=== PATIENT | female | born 1960 ===

== ENCOUNTER 2017-06-01 20:18 | Emergency (ER) | payer OTHER ==
[2017-06-01 20:19] VITALS: BMI 28.8
--- NOTE | 2017-06-01 21:09 | ED PDOC ---
Arrival/HPI - General Chief Complaint: Flu-like Symptoms Time Seen by Provider: 06/01/17 21:04 Historian: Patient - History of Present Illness Narrative History of Present Illness (Text): 06/01/17 21:08 Lizzeth Johnson is a 56 year old female, whose past medical history includes hypertension, who presents to the Emergency department complaining of some abdominal discomfort earlier today.. Patient reports a headache currently and some nausea earlier, which resolved on its own. Patient noted to be febrile on arrival to ER. Patient states she only ate a banana prior. Patient denies any chills, chest pain, shortness of breath, vomiting, diarrhea, urinary symptoms, back pain, neck pain, vision changes, dizziness, trauma/injury, or any other complaints. Time/Duration: Other (today) Symptom Onset: Gradual Symptom Course: Unchanged Activities at Onset: Light Context: Work Past Medical History - Provider Review Nursing Documentation Reviewed: Yes - Infectious Disease Hx of Infectious Diseases: None - Tetanus Immunization Tetanus Immunization: Unknown - Past Medical History Past Medical History: No Previous - Cardiac Hx Cardiac Disorders: Yes Hx Hypertension: Yes - Musculoskeletal/Rheumatological Hx Falls: No - Psychiatric Hx Psychophysiologic Disorder: No Hx Anxiety: No Hx Bipolar Disorder: No Hx Depression: No Hx Emotional Abuse: No Hx Hallucinations: No Hx Panic Disorder: No Hx Post Traumatic Stress Disorder: No Hx Psychosis: No Hx Physical Abuse: No Hx Schizophrenia: No Hx Sexual Abuse: No Hx Substance Use: No - Surgical History Hx Hysterectomy: Yes Other/Comment: right shoulder surgery - Anesthesia Hx Anesthesia: Yes Hx Anesthesia Reactions: No Hx Malignant Hyperthermia: No - Suicidal Assessment Feels Threatened In Home Enviroment: No Family/Social History - Physician Review Nursing Documentation Reviewed: Yes Family/Social History: Unknown Family HX Smoking Status: Never Smoked Hx Alcohol Use: No Hx Substance Use: No Hx Substance Use Treatment: No Allergies/Home Meds Allergies/Adverse Reactions: Allergies No Known Allergies Allergy (Verified 11/18/12 12:08) Home Medications: Home Meds Medication Instructions Recorded Confirmed Calcium Carbonate [Calcium] 600 mg PO DAILY 06/01/17 06/01/17 Cholecalciferol [Vitamin D] 1,000 iu PO DAILY 06/01/17 06/01/17 Metoprolol Tartrate [Lopressor] 12.5 mg PO BID 06/01/17 06/01/17 Simvastatin 20 mg PO DAILY 06/01/17 06/01/17 Review of Systems - Physician Review All systems were reviewed & negative as marked: Yes - Review of Systems Constitutional: Fevers Eyes: Normal ENT: Normal Respiratory: Normal. absent: SOB, Cough Cardiovascular: Normal. absent: Chest Pain Gastrointestinal: Abdominal Pain, Nausea. absent: Diarrhea, Vomiting Genitourinary Female: Normal. absent: Dysuria, Frequency, Hematuria, Urine Output Changes Musculoskeletal: Normal. absent: Back Pain, Neck Pain Skin: Normal. absent: Rash Neurological: Normal. absent: Headache, Dizziness Endocrine: Normal Hemo/Lymphatic: Normal Psychiatric: Normal Physical Exam Vital Signs Reviewed: Yes Vital Signs Temp Pulse Resp BP Pulse Ox 06/01/17 23:45 100.8 F H 104 H 18 120/71 97 06/01/17 21:41 101.7 F H 06/01/17 20:43 101.7 F H 111 H 20 133/86 98 Temperature: Febrile Blood Pressure: Normal Pulse: Regular Respiratory Rate: Normal Appearance: Positive for: Well-Appearing, Non-Toxic, Comfortable Pain Distress: None Mental Status: Positive for: Alert and Oriented X 3 - Systems Exam Head: Present: Atraumatic, Normocephalic Pupils: Present: PERRL Extroacular Muscles: Present: EOMI Conjunctiva: Present: Normal Mouth: Present: Moist Mucous Membranes Neck: Present: Normal Range of Motion Respiratory/Chest: Present: Clear to Auscultation, Good Air Exchange. No: Respiratory Distress, Accessory Muscle Use Cardiovascular: Present: Regular Rate and Rhythm, Normal S1, S2. No: Murmurs Abdomen: Present: Normal Bowel Sounds. No: Tenderness, Distention, Peritoneal Signs Back: Present: Normal Inspection Upper Extremity: Present: Normal Inspection. No: Cyanosis, Edema Lower Extremity: Present: Normal Inspection. No: Edema Neurological: Present: GCS=15, CN II-XII Intact, Speech Normal Skin: Present: Warm, Dry, Normal Color. No: Rashes Psychiatric: Present: Alert, Oriented x 3, Normal Insight, Normal Concentration Medical Decision Making ED Course and Treatment: 06/01/17 21:09 Impression: 56 year old female complaining of abdominal discomfort, nausea, headache, and fever today. Plan: -- US Abdomen -- Chest X-ray -- Labs, VBG -- Urinalysis, urine cultures -- Rapid influenza -- IV fluids -- Tylenol -- Reassess and disposition Progress Notes: 06/01/17 22:08 Chest X-ray reviewed, shows no acute processes. 06/01/17 23:55 US Abdomen shows: Liver: There is hepatopedal flow in the main portal vein. Liver is normal in size. Echogenicity is slightly heterogeneous. Gallbladder: Gallbladder is distended with no stones, sludge or wall thickening. Common bile duct: Common bile duct measures approximately 5 mm in diameter Pancreas: Pancreas is partially obscured by bowel gas. Visualized portions is unremarkable. Kidneys: Kidneys are normal in size. There is no pelvocaliectasis.There is a 1.6 x 1.5 x 1.4 cm left renal cyst. Spleen: Spleen is unremarkable. Aorta: Visualized portions of the aorta and inferior vena cava are unremarkable. Inferior vena cava: See above. IMPRESSION: No gallstones or ductal dilatation; no hydronephrosis. 06/02/17 00:20 On re-evaluation, patient feels better and is in no acute distress. I have discussed the results and plan with the patient, who expresses understanding. Patient in agreement with plan to be discharged home. Patient is stable for discharge. Patient was instructed to follow up with physician or return if symptoms worsen or new concerning symptoms arise. - Lab Interpretations Lab Results: 06/01/17 21:20 06/01/17 21:20 Lab Results 06/01/17 22:00: Influenza Typ A,B (EIA) Negative for flu a/b 06/01/17 21:20: Sodium 138, Chloride 104, Potassium 3.8, Carbon Dioxide 23, Anion Gap 15, BUN 13, Creatinine 1.0, Est GFR ( Amer) > 60, Est GFR (Non- Af Amer) 57, Random Glucose 94, Calcium 9.9, Total Bilirubin 0.6, AST 25, ALT 32 , Alkaline Phosphatase 79, Total Protein 7.7, Albumin 4.6, Globulin 3.0, Albumin /Globulin Ratio 1.5 06/01/17 21:20: pO2 35, VBG pH 7.34, VBG pCO2 48.0, VBG HCO3 25.9, VBG Total CO2 27.4, VBG O2 Sat (Calc) 73.8 H, VBG Base Excess -0.4 L, VBG Potassium 3.5 L , Sodium 139.0, Chloride 105.0, Glucose 96, Lactate 0.7, FiO2 21.0, Venous Blood Potassium 3.5 L 06/01/17 21:20: Urine Color Yellow, Urine Appearance Clear, Urine pH 6.0, Ur Specific [place] <= 1.005, Urine Protein Negative, Urine Glucose (UA) Negative, Urine Ketones Negative, Urine Blood Moderate H, Urine Nitrate Negative, Urine Bilirubin Negative, Urine Urobilinogen 0.2, Ur Leukocyte Esterase Small H, Urine RBC 15 - 20, Urine WBC 5 - 10, Ur Epithelial Cells 4 - 5, Amorphous Sediment Few, Urine Bacteria Mod 06/01/17 21:20: WBC 7.5 D, RBC 4.35, Hgb 13.1, Hct 38.1, MCV 87.6, MCH 30.1, MCHC 34.4, RDW 12.4, Plt Count 159, MPV 10.9, Gran % 76.2 H, Lymph % (Auto) 17.0 L, [place] % (Auto) 5.5, Eos % (Auto) 1.2 L, Baso % (Auto) 0.1, Gran # 5.67, Lymph # 1.3, [place] # 0.4, Eos # 0.1, Baso # 0.01 I have reviewed the lab results: Yes - RAD Interpretation Radiology Orders: 06/01/17 21:09 CHEST PORTABLE [RAD] Stat 06/01/17 21:11 ABDOMEN COMPLETE [US] Stat Heavy Equipment Operating Engineer: ED Physician, Radiologist - EKG Interpretation Interpreted by ED Physician: Yes Type: 12 lead EKG - Medication Orders Current Medication Orders: Discontinued Medications Acetaminophen (Tylenol 325mg Tab) 650 mg PO STAT STA Stop: 06/01/17 21:12 Last Admin: 06/01/17 21:41 Dose: 650 mg MAR Pain/Vitals Document 06/01/17 21:41 AB (Rec: 06/01/17 21:42 AB [facility] [place]-[id number]) Pain Reassessment Is This A Pain ReAssessment? No Sleep Is patient sleeping during reassessment? No Presence of Pain Presence of Pain No Vitals Temperature (97.6 F-99.6 F) 101.7 F Temperature Source Oral Sodium Chloride (Sodium Chloride 0.9%) 1,000 mls @ 999 mls/hr IV .Q1H1M STA Stop: 06/01/17 22:12 Last Admin: 06/01/17 21:42 Dose: 999 mls/hr eMAR Start Stop Document 06/01/17 21:42 AB (Rec: 06/01/17 21:42 AB [facility] [place]-[id number]) Intravenous Solution Start Date 06/01/17 Start Time 21:42 End Date 06/01/17 End time 22:42 Total Infusion Time 60 - Scribe Statement The provider has reviewed the documentation as recorded by the Paco Hendricks Provider Scribe Attestation: All medical record entries made by the Scribe were at my direction and personally dictated by me. I have reviewed the chart and agree that the record accurately reflects my personal performance of the history, physical exam, medical decision making, and the department course for this patient. I have also personally directed, reviewed, and agree with the discharge instructions and disposition. Disposition/Present on Arrival - Present on Arrival Any Indicators Present on Arrival: No History of DVT/PE: No History of Uncontrolled Diabetes: No Urinary Catheter: No History of Decub. Ulcer: No History Surgical Site Infection Following: None - Disposition Have Diagnosis and Disposition been Completed?: Yes Diagnosis: Urinary tract infection Disposition: HOME/ ROUTINE Disposition Time: 00:18 Patient Plan: Discharge Patient Problems: Current Active Problems Problem Status Onset Urinary tract infection Acute Condition: GOOD Discharge Instructions (ExitCare): Urinary Tract Infection in Women (ED) Additional Instructions: Drink plenty of liquids/take meds as prescribed/follow up with your doctor this week Prescriptions: Cephalexin [cephalexin] 500 mg PO BID #14 cap Referrals: Tracy Jung MD [Primary Care Provider] - Follow up with primary Forms: [employer] (Citizen Of [place])
[2017-06-01] MEDS ORDERED: Sodium Chloride 0.9% 1,000 ML IV STA (21:12)
[2017-06-01 21:42] LABS: VENOUS BLOOD GAS BASE EXCESS -0.4 mmol/L (0.0-2.0); VENOUS BLOOD GAS PO2 35 mm/Hg (30-55); VENOUS BLOOD PH 7.34 (7.32-7.43)
[2017-06-01 21:44] LABS: URINE BILIRUBIN NEGATIVE (NEGATIVE); URINE BLOOD MODERATE (NEGATIVE); URINE GLUCOSE (UA) NEGATIVE (NEGATIVE); URINE LEUKOCYTE ESTERASE SMALL Leu/uL (NEGATIVE); URINE NITRATE NEGATIVE (NEGATIVE); URINE PROTEIN NEGATIVE mg/dL (<30 mg/dL); URINE UROBILINOGEN 0.2 E.U./dL (<1 E.U./dL)
[2017-06-01 21:47] LABS: BASO # 0.01 K/mm3 (0.0-2.0); BASO % 0.1 % (0.0-3.0); EOS # 0.1 (0.0-0.7); EOS % 1.2 % (1.5-5.0); GRAN # 5.67 (1.4-6.5); GRAN % 76.2 % (50.0-68.0); HEMOGLOBIN 13.1 g/dL (12.0-16.0); LYMPH # 1.3 (1.2-3.4); MEAN CELL VOLUME 87.6 fl (80.0-105.0); MEAN CORPUSCULAR HEMOGLOBIN 30.1 pg (25.0-35.0); MEAN CORPUSCULAR HGB CONC 34.4 g/dl (31.0-37.0); MEAN PLATELET VOLUME 10.9 fl (7.0-11.0); MONO # 0.4 (0.1-0.6); MONO % 5.5 % (1.0-6.0); RBC 4.35 10^6/uL (3.5-6.1); RED CELL DISTRIBUTION WIDTH 12.4 % (11.5-14.5); URINE APPEARANCE CLEAR (CLEAR); URINE COLOR YELLOW (YELLOW); WHITE BLOOD COUNT 7.5 10^3/ul (4.5-11.0)
[2017-06-01 21:54] LABS: URINE AMORPHOUS SEDIMENT FEW; URINE BACTERIA MOD (NEG); URINE RBC 15 - 20 /hpf (0-2)
[2017-06-01 21:55] LABS: ALB/GLOB RATIO 1.5 (1.1-1.8); ALBUMIN 4.6 g/dL (3.0-4.8); ALT/SGPT 32 U/L (7-56); AST/SGOT 25 U/L (14-36); BLOOD UREA NITROGEN 13 mg/dL (7-21); CALCIUM 9.9 mg/dL (8.4-10.5); GFR AFRICAN-AMERICAN > 60; GFR NON-AFRICAN AMERICAN 57
[2017-06-01 23:46] VITALS: RESP 18
--- NOTE | 2017-06-01 23:49 | US ---
EXAM: US Abdomen Complete EXAM DATE/TIME: 06/01/2017 9:11 PM CLINICAL HISTORY: 56 years old, female; Pain; Abdominal pain; Generalized TECHNIQUE: Real-time ultrasound of the abdomen (complete) with image documentation. COMPARISON: There are no prior studies for comparison. FINDINGS: Liver: There is hepatopedal flow in the main portal vein. Liver is normal in size. Echogenicity is slightly heterogeneous. Gallbladder: Gallbladder is distended with no stones, sludge or wall thickening. Common bile duct: Common bile duct measures approximately 5 mm in diameter Pancreas: Pancreas is partially obscured by bowel gas. Visualized portions is unremarkable. Kidneys: Kidneys are normal in size. There is no pelvocaliectasis.There is a 1.6 x 1.5 x 1.4 cm left renal cyst. Spleen: Spleen is unremarkable. Aorta: Visualized portions of the aorta and inferior vena cava are unremarkable. Inferior vena cava: See above. IMPRESSION: No gallstones or ductal dilatation; no hydronephrosis
[2017-06-02 00:41] VITALS: BP 123/76; PULSE 80; TEMP 99; O2SAT 100
--- NOTE | 2017-06-02 09:05 | RAD ---
HISTORY: Sepsis Patient COMPARISON: Comparison chest 11/18/2012 FINDINGS: LUNGS: Minor bibasilar atelectasis PLEURA: No significant pleural effusion identified, no pneumothorax apparent. CARDIOVASCULAR: Heart size is within range of normal however there is slight left ventricular configuration. OSSEOUS STRUCTURES: No significant abnormalities. VISUALIZED UPPER ABDOMEN: Normal. OTHER FINDINGS: None. IMPRESSION: Minor bibasilar atelectasis
== END 2017-06-02 00:39 | disposition home or self-care (01) ==
LOC: ED 20:18
DX: N39.0 Urinary tract infection, site not specified (principal); I10 Essential (primary) hypertension
CPT/HCPCS: 71045; 76700; 80053; 81001; 82803; 85025; 87086; 87804; 96360; 99284; J7040

== ENCOUNTER 2017-06-06 22:10 | Emergency (ER) | payer OTHER ==
[2017-06-06 22:11] VITALS: BMI 28.8
--- NOTE | 2017-06-06 22:34 | ED PDOC ---
"Arrival/HPI - General Time Seen by Provider: 06/06/17 22:31 Historian: Patient, Family - History of Present Illness Narrative History of Present Illness (Text): 06/06/17 22:32 56 y/o female, pmh including htn/hyperlipidemia, nkda, c/o RUQ pain x 6 hours with no fall or trauma. Aching pain, on and off, seen at the ER about 5 days ago, still persisting pain, no coughing or night sweat, no tearing pain, no palpitation, no rash, no numbness or tingling, no coughing, no other medical or psychological complaints. Past Medical History - Provider Review Nursing Documentation Reviewed: Yes - Infectious Disease Hx of Infectious Diseases: None - Tetanus Immunization Tetanus Immunization: Unknown - Past Medical History Past Medical History: No Previous - Cardiac Hx Cardiac Disorders: Yes Hx Hypertension: Yes - Musculoskeletal/Rheumatological Hx Falls: No - Psychiatric Hx Psychophysiologic Disorder: No Hx Anxiety: No Hx Bipolar Disorder: No Hx Depression: No Hx Emotional Abuse: No Hx Hallucinations: No Hx Panic Disorder: No Hx Post Traumatic Stress Disorder: No Hx Psychosis: No Hx Physical Abuse: No Hx Schizophrenia: No Hx Sexual Abuse: No Hx Substance Use: No - Surgical History Hx Hysterectomy: Yes Other/Comment: right shoulder surgery - Anesthesia Hx Anesthesia: Yes Hx Anesthesia Reactions: No Hx Malignant Hyperthermia: No - Suicidal Assessment Feels Threatened In Home Enviroment: No Family/Social History - Physician Review Nursing Documentation Reviewed: Yes Family/Social History: Unknown Family HX Smoking Status: Never Smoked Hx Alcohol Use: No Hx Substance Use: No Hx Substance Use Treatment: No Allergies/Home Meds Allergies/Adverse Reactions: Allergies No Known Allergies Allergy (Verified 06/06/17 22:42) Home Medications: Home Meds Medication Instructions Recorded Confirmed Calcium Carbonate [Calcium] 600 mg PO DAILY 06/01/17 06/01/17 Cholecalciferol [Vitamin D] 1,000 iu PO DAILY 06/01/17 06/01/17 Metoprolol Tartrate [Lopressor] 12.5 mg PO BID 06/01/17 06/01/17 Simvastatin 20 mg PO DAILY 06/01/17 06/01/17 Review of Systems - Review of Systems Constitutional: absent: Fatigue, Fevers Eyes: absent: Vision Changes ENT: absent: Hearing Changes Respiratory: absent: SOB, Cough Cardiovascular: absent: Chest Pain Gastrointestinal: Abdominal Pain. absent: Nausea, Vomiting, Anorexia Musculoskeletal: Myalgias. absent: Arthralgias, Joint Swelling Skin: absent: Rash, Pruritis Physical Exam Vital Signs Reviewed: Yes Vital Signs Temp Pulse Resp BP Pulse Ox 06/06/17 22:54 99.8 F H 06/06/17 22:38 86 18 139/78 100 Temperature: Afebrile Blood Pressure: Normal Pulse: Regular Respiratory Rate: Normal Appearance: Positive for: Well-Appearing, Non-Toxic, Comfortable Pain Distress: Moderate Mental Status: Positive for: Alert and Oriented X 3 - Systems Exam Head: Present: Atraumatic, Normocephalic Pupils: Present: PERRL Extroacular Muscles: Present: EOMI Conjunctiva: Present: Normal Mouth: Present: Moist Mucous Membranes Neck: Present: Normal Range of Motion Respiratory/Chest: Present: Clear to Auscultation, Good Air Exchange. No: Respiratory Distress, Accessory Muscle Use Cardiovascular: Present: Regular Rate and Rhythm, Normal S1, S2. No: Murmurs Abdomen: Present: Tenderness (epigastric region), Normal Bowel Sounds. No: Distention, Peritoneal Signs, Rebound, Guarding Back: Present: Normal Inspection. No: CVA Tenderness, Midline Tenderness, Paraspinal Tenderness Upper Extremity: Present: Normal Inspection. No: Cyanosis, Edema Lower Extremity: Present: Normal Inspection. No: Edema Neurological: Present: GCS=15, Speech Normal, Motor Func Grossly Intact, Gait Normal, Memory Normal Skin: Present: Warm, Dry, Normal Color. No: Rashes Psychiatric: Present: Alert, Oriented x 3, Normal Insight, Normal Concentration Medical Decision Making ED Course and Treatment: 06/06/17 22:43 -labs/ua/lipase -CT abdomen and pelvis -ekg -IVF/toradol/pepcid/valium -Observe and reassess 06/07/17 01:47 -EKG: NSR @ 89 BPM, no ST elevation or depression, no T wave inversion. -Chest xray result reviewed from less than 1 week ago, no pulmonary or cardio symptoms. -CT abdomen and pelvis show Right colonic diverticulosis with inflammatory change representing acute diverticulitis. No perforation or abscess is identified. Cipro and flagyl ordered -Labs show no acute findings -Troponin is negative -Pain resolved, feeling much better after the IV medications, cipro and flagyl ordered -I discussed about the side effects of the cipro and flagyl including but not limited to prolong QT and achilles tendon rupture, pt. verbally expressed understanding. -Discharge home with cipro, flagyl, pepcid, naproxen, bed rest, follow up with your own pmd and GI within 2 days, high fiber diets, avoid seeds, stay hydrated , return to the ER for any new or worsening signs or symptoms. - Lab Interpretations Lab Results: 06/06/17 22:40 06/06/17 22:40 Lab Results 06/06/17 23:25: Urine Color Straw, Urine Appearance Clear, Urine pH 7.0, Ur Specific [place] 1.010, Urine Protein Negative, Urine Glucose (UA) Negative, Urine Ketones Negative, Urine Blood Small H, Urine Nitrate Negative, Urine Bilirubin Negative, Urine Urobilinogen 0.2, Ur Leukocyte Esterase Trace H, Urine RBC 1 - 3, Urine WBC 1 - 3, Ur Epithelial Cells 1 - 3 06/06/17 22:40: WBC 10.1 D, RBC 4.10, Hgb 12.2, Hct 36.7, MCV 89.5, MCH 29.8, MCHC 33.2, RDW 12.5, Plt Count 188, MPV 10.7, Gran % 66.1, Lymph % (Auto) 25.0, [place] % (Auto) 8.2 H, Eos % (Auto) 0.5 L, Baso % (Auto) 0.2, Gran # 6.68 H, Lymph # 2.5, [place] # 0.8 H, Eos # 0.1, Baso # 0.02 06/06/17 22:40: Sodium 138, Potassium 4.1, Chloride 103, Carbon Dioxide 23, Anion Gap 16, BUN 17, Creatinine 1.3 H, Est GFR ( Amer) 51, Est GFR (Non- Af Amer) 42, Random Glucose 101, Calcium 9.9, Total Bilirubin 0.6, AST 23, ALT 27, Alkaline Phosphatase 64, Lactate Dehydrogenase 460, Total Creatine Kinase 134, Troponin I < 0.01, Total Protein 7.5, Albumin 4.4, Globulin 3.1, Albumin/ Globulin Ratio 1.4, Lipase 102 06/06/17 22:40: D-Dimer, Quantitative < 200 - RAD Interpretation Radiology Orders: 06/06/17 23:34 ABD & PELVIS W/O PO OR IV CONT [CT] Stat FINDINGS: Lower thorax: There is bibasilar atelectasis. Minimal pericardial effusion. Small hiatal hernia. There is bibasilar atelectasis. ABDOMEN: Liver: Unremarkable. Gallbladder and bile ducts: Partially contracted gallbladder. Pancreas: Unremarkable. No ductal dilation. Spleen: Unremarkable. No splenomegaly. Adrenals: There is low-density left adrenal nodule measuring 1.6 cm representing adrenal adenoma. Kidneys and ureters: Unremarkable. No obstructing stones. No hydronephrosis. Stomach and bowel: Right colonic diverticulosis with inflammatory change representing acute diverticulitis. No perforation or abscess is identified. Moderate amount of stool in the colon. No obstruction. Appendix: The appendix demonstrates normal appearance with intraluminal air. No appendicoliths. There is mild reactive changes around the appendix secondary to subadjacent inflammatory change. Close clinical surveillance is recommended. PELVIS: [employer] | Final Radiology Report CONFIDENTIALITY STATEMENT This report is intended only for use by the referring physician, and only in accordance with law. If you received this in error, call [phone]. Page 2 of 2 Bladder: Bladder distention. Correlation with patient's voiding status is recommended. Reproductive: Hysterectomy. ABDOMEN and PELVIS: Intraperitoneal space: Unremarkable. No free air. No significant fluid collection. Bones/joints: No acute fracture. No dislocation. Soft tissues: Unremarkable. Vasculature: Unremarkable. No abdominal aortic aneurysm. Lymph nodes: Unremarkable. No enlarged lymph nodes. IMPRESSION: 1. Right colonic diverticulosis with inflammatory change representing acute diverticulitis. No perforation or abscess is identified. Thank you for allowing us to participate in the care of your patient. Dictated and Authenticated by: Prince Reddy MD 06/07/2017 1:31 AM Eastern Time ([place] & [place]) Bobbin Dumper: Radiologist - EKG Interpretation EKG Interpretation (Text): 06/06/17 23:37 -EKG: NSR @ 89 BPM, no ST elevation or depression, no T wave inversion. Interpreted by ED Physician: Yes Type: 12 lead EKG - Medication Orders Current Medication Orders: Sodium Chloride (Sodium Chloride 0.9%) 1,000 mls @ 100 mls/hr IV .Q10H HAYDEE Last Admin: 06/07/17 00:20 Dose: 100 mls/hr eMAR Start Stop Document 06/07/17 00:20 SANTIAGO (Rec: 06/07/17 00:21 SANTIAGO [facility] [id number]) Intravenous Solution Start Date 06/06/17 Start Time 23:50 End Date 06/07/17 End time 00:21 Total Infusion Time 31 Discontinued Medications Acetaminophen (Tylenol 325mg Tab) 650 mg PO STAT STA Stop: 06/06/17 23:35 Last Admin: 06/07/17 00:24 Dose: 650 mg MAR Pain/Vitals Document 06/07/17 00:24 SANTIAGO (Rec: 06/07/17 00:25 SANTIAGO [facility] [id number]) Pain Reassessment Is This A Pain ReAssessment? Yes Sleep Is patient sleeping during reassessment? No Presence of Pain Presence of Pain No Diazepam (Valium) 5 mg PO ONCE ONE PRN Reason: Protocol Stop: 06/06/17 22:46 Last Admin: 06/06/17 22:56 Dose: 5 mg Famotidine (Pepcid) 20 mg IVP STAT STA Stop: 06/06/17 22:46 Last Admin: 06/06/17 22:56 Dose: 20 mg IVP Administration Document 06/06/17 22:56 GMD (Rec: 06/06/17 22:56 GMD [id number]) Charges for Administration # of IVP Administrations 1 Ketorolac Tromethamine (Toradol) 30 mg IVP STAT STA Stop: 06/06/17 22:46 Last Admin: 06/06/17 22:56 Dose: 30 mg MAR Pain Assessment Document 06/06/17 22:56 GMD (Rec: 06/06/17 22:56 GMD [id number]) Pain Reassessment Is this a pain reassessment? No Sleep Is patient sleeping during reassessment? No Presence of Pain Presence of Pain Yes IVP Administration Document 06/06/17 22:56 GMD (Rec: 06/06/17 22:56 GMD [id number]) Charges for Administration # of IVP Administrations 1 - PA / DATA MANAGEMENT MANAGER / Resident Statement / has reviewed & agrees with the documentation as recorded. Disposition/Present on Arrival - Present on Arrival Any Indicators Present on Arrival: No History of DVT/PE: No History of Uncontrolled Diabetes: No Urinary Catheter: No History of Decub. Ulcer: No History Surgical Site Infection Following: None - Disposition Have Diagnosis and Disposition been Completed?: Yes Diagnosis: Diverticulitis Disposition: HOME/ ROUTINE Disposition Time: 01:50 Patient Plan: Discharge Condition: IMPROVED Print Language: TURKMEN Additional Instructions: -Discharge home with cipro, flagyl, pepcid, naproxen, bed rest, follow up with your own pmd and GI within 2 days, high fiber diets, avoid seeds, stay hydrated , return to the ER for any new or worsening signs or symptoms. Prescriptions: Ciprofloxacin/Ciprofloxa HCl [Ciprofloxacin] 500 mg PO BID #20 tab Famotidine [Pepcid] 20 mg PO BID #20 tab metroNIDAZOLE [Flagyl] 500 mg PO TID #30 tab Naproxen 500 mg PO BID PRN #20 tab PRN Reason: Other Referrals: Jose Farmer MD [Staff Provider] - Follow up with primary [facility] [Outside] - Follow up with primary Forms: WORK NOTE"
[2017-06-06 22:42] VITALS: RESP 18
[2017-06-06] MEDS: Sodium Chloride 0.9% 1,000 ML IV SCH (22:54)
[2017-06-06 23:10] LABS: BASO # 0.02 K/mm3 (0.0-2.0); BASO % 0.2 % (0.0-3.0); EOS # 0.1 (0.0-0.7); EOS % 0.5 % (1.5-5.0); GRAN # 6.68 (1.4-6.5); GRAN % 66.1 % (50.0-68.0); HEMOGLOBIN 12.2 g/dL (12.0-16.0); LYMPH # 2.5 (1.2-3.4); MEAN CELL VOLUME 89.5 fl (80.0-105.0); MEAN CORPUSCULAR HEMOGLOBIN 29.8 pg (25.0-35.0); MEAN CORPUSCULAR HGB CONC 33.2 g/dl (31.0-37.0); MEAN PLATELET VOLUME 10.7 fl (7.0-11.0); MONO # 0.8 (0.1-0.6); MONO % 8.2 % (1.0-6.0); RBC 4.1 10^6/uL (3.5-6.1); RED CELL DISTRIBUTION WIDTH 12.5 % (11.5-14.5); WHITE BLOOD COUNT 10.1 10^3/ul (4.5-11.0)
[2017-06-06 23:41] LABS: TROPONIN I < 0.01 ng/mL
[2017-06-06 23:48] LABS: URINE BILIRUBIN NEGATIVE (NEGATIVE); URINE BLOOD SMALL (NEGATIVE); URINE GLUCOSE (UA) NEGATIVE (NEGATIVE); URINE LEUKOCYTE ESTERASE TRACE Leu/uL (NEGATIVE); URINE NITRATE NEGATIVE (NEGATIVE); URINE PROTEIN NEGATIVE mg/dL (<30 mg/dL); URINE UROBILINOGEN 0.2 E.U./dL (<1 E.U./dL)
[2017-06-06 23:57] LABS: URINE APPEARANCE CLEAR (CLEAR); URINE COLOR STRAW (YELLOW)
[2017-06-07 00:06] LABS: ALB/GLOB RATIO 1.4 (1.1-1.8); ALBUMIN 4.4 g/dL (3.0-4.8); ALT/SGPT 27 U/L (7-56); AST/SGOT 23 U/L (14-36); BLOOD UREA NITROGEN 17 mg/dL (7-21); CALCIUM 9.9 mg/dL (8.4-10.5); GFR AFRICAN-AMERICAN 51; GFR NON-AFRICAN AMERICAN 42; LIPASE 102 U/L (23-300)
[2017-06-07] MEDS: Sodium Chloride 0.9% 1,000 ML IV SCH (00:20)
[2017-06-07] MEDS ORDERED: Iodixanol 320 MG/ML 100 ML BOTTLE IV ONE (00:38)
--- NOTE | 2017-06-07 01:31 | CT ---
EXAM: CT Abdomen and Pelvis Without Intravenous Contrast CLINICAL HISTORY: 56 years old, female; Pain; Abdominal pain; Flank; Right; Additional info: Rt. Sided abdominal pain TECHNIQUE: Axial computed tomography images of the abdomen and pelvis without intravenous contrast. All CT scans at this facility use one or more dose reduction techniques, viz.: automated exposure control; ma/kV adjustment per patient size (including targeted exams where dose is matched to indication; i.e. head); or iterative reconstruction technique. 617 images are submitted. Coronal and sagittal reformatted images were created and reviewed. COMPARISON: US - ABDOMEN COMPLETE 2017-06-01 22:40 FINDINGS: Lower thorax: There is bibasilar atelectasis. Minimal pericardial effusion. Small hiatal hernia. There is bibasilar atelectasis. ABDOMEN: Liver: Unremarkable. Gallbladder and bile ducts: Partially contracted gallbladder. Pancreas: Unremarkable. No ductal dilation. Spleen: Unremarkable. No splenomegaly. Adrenals: There is low-density left adrenal nodule measuring 1.6 cm representing adrenal adenoma. Kidneys and ureters: Unremarkable. No obstructing stones. No hydronephrosis. Stomach and bowel: Right colonic diverticulosis with inflammatory change representing acute diverticulitis. No perforation or abscess is identified. Moderate amount of stool in the colon. No obstruction. Appendix: The appendix demonstrates normal appearance with intraluminal air. No appendicoliths. There is mild reactive changes around the appendix secondary to subadjacent inflammatory change. Close clinical surveillance is recommended. PELVIS: Bladder: Bladder distention. Correlation with patient's voiding status is recommended. Reproductive: Hysterectomy. ABDOMEN and PELVIS: Intraperitoneal space: Unremarkable. No free air. No significant fluid collection. Bones/joints: No acute fracture. No dislocation. Soft tissues: Unremarkable. Vasculature: Unremarkable. No abdominal aortic aneurysm. Lymph nodes: Unremarkable. No enlarged lymph nodes. IMPRESSION: 1. Right colonic diverticulosis with inflammatory change representing acute diverticulitis. No perforation or abscess is identified.
[2017-06-07 02:04] VITALS: BP 116/64; PULSE 79; TEMP 98.6; O2SAT 99
--- NOTE | 2017-06-07 17:20 | CARD ---
APPROVED REPORT EKG Measurement Heart [id number] <Conclusion> Normal sinus rhythm Possible Left atrial enlargement Borderline ECG
== END 2017-06-07 02:06 | disposition home or self-care (01) ==
LOC: ED 22:10
DX: K57.92 Diverticulitis of intestine, part unspecified, without perforation or abscess without bleeding (principal); I10 Essential (primary) hypertension
CPT/HCPCS: 74176; 80053; 81001; 82550; 83615; 83690; 84484; 85025; 85378; 87086; 93005; 96360; 96374; 96375; 99284; J1885; J7040